=== PATIENT | female | born 1950 | race Caucasian/White ===

== ENCOUNTER 2023-09-02 11:12 | Emergency (ER) | payer MEDICARE, OTHER ==
[~2023-09-02] VITALS: Ht 165.1 cm; Wt 55.0 kg
[2023-09-02 12:52] LABS: INR 0.9 INR; PROTHROMBIN TIME 10.2 SECONDS (9.0-12.0)
[2023-09-02 12:53] LABS: BASOPHILS % (AUTO) 0.4 % (0-1); EOSINOPHILS # (AUTO) 0.3 X10'3 (0-0.9); EOSINOPHILS % (AUTO) 2.8 % (0-6); HEMATOCRIT 36.9 % (35.0-45.0); HEMOGLOBIN 12.3 g/dl (12.0-16.0); LYMPHOCYTES # (AUTO) 1.1 X10'3 (1.1-4.8); MEAN CORPUSCULAR HEMOGLOBIN 30.5 PG (27.0-31.0); MEAN CORPUSCULAR HGB CONC 33.4 g/dL (33.0-36.5); MEAN CORPUSCULAR VOLUME 91.4 FL (78-98); MEAN PLATELET VOLUME 9.2 FL (7.4-10.4); MONOCYTES # (AUTO) 0.6 X10'3 (0-0.9); MONOCYTES % (AUTO) 5.2 % (2-12); NEUTROPHILS # (AUTO) 8.9 X10'3 (1.8-7.7); NEUTROPHILS % (AUTO) 81.6 % (42-75); PLATELET COUNT 301 X10'3 (140-440); RED BLOOD COUNT 4.03 X10'6 (4.20-5.60); RED CELL DISTRIBUTION WIDTH 13.1 % (11.5-14.5); WHITE BLOOD COUNT 10.9 X10'3 (4.5-11.0)
[2023-09-02 12:57] LABS: GLUCOSE 110 MG/DL (70-104)
[2023-09-02 12:58] LABS: ALANINE AMINOTRANSFERASE 22 U/L (12-78); ALBUMIN 2.9 G/DL (3.4-5.0); ALBUMIN/GLOBULIN RATIO 0.8 (1.1-1.5); ALKALINE PHOSPHATASE 93 IU/L (46-116); ANION GAP 9 (8-16); ASPARTATE AMINO TRANSFERASE 18 U/L (10-37); BILIRUBIN,TOTAL 0.3 MG/DL (0.1-1.0); BLOOD UREA NITROGEN 26 MG/DL (7-18); CALCIUM 8.6 MG/DL (8.5-10.1); CHLORIDE 108 MMOL/L (99-107); CREATININE 1.04 MG/DL (0.40-0.90); LIPASE 38 U/L (16-77); POTASSIUM 5.2 MMOL/L (3.5-5.1); SODIUM 143 MMOL/L (135-145); TOTAL CARBON DIOXIDE 26.4 MMOL/L (24-32); TOTAL PROTEIN 6.6 G/DL (6.4-8.2); eCRCL 41 ML/MIN; eGFR 52 ML/MIN
[2023-09-02] MEDS ORDERED: iohexol 300mg/ml 100ml inj. ONE (13:01)
[2023-09-02] MEDS: ondansetron/PF 4mg/2ml inj IV ONE ×2 (13:55→15:28)
[2023-09-02] MEDS: morphine 4 MG/ML inj SYRINge IV ONE ×2 (13:55→14:46)
[2023-09-02] MEDS: MESSAGE TO NURSING IV SCH (15:12)
[2023-09-02] MEDS: HYDROmorphone 1 mg/ml syringe IV STA ×2 (15:15→18:21)
[2023-09-02] MEDS: ondansetron/PF 4mg/2ml inj IV STA (18:13)
[2023-09-02 19:22] VITALS: TEMP 98.2
[2023-09-02] MEDS: normal saline 1000ML IV soln IVB ONE (22:52)
[2023-09-02] MEDS: metroNIDAZOLE-Flagyl 500mg/NS 100 ML IV STA (22:52)
[2023-09-02] MEDS: levoFLOXACIN-Levaquin 500mg/D5 100 ML IV ONE (23:06)
[2023-09-02 23:31] VITALS: BP 162/71; PULSE 84; O2SAT 100
[2023-09-02 23:49] VITALS: RESP 14
[2023-09-02] MEDS: HYDROmorphone 1 mg/ml syringe IV ONE (23:49)
[2023-09-02] MEDS: dextrose 5%-normal saline 1,000 ML IV SCH (23:49)
[2023-09-03] MEDS: ondansetron/PF 4mg/2ml inj IV ONE (00:21)
[2023-09-03] MEDS: insulin regular, human 10 units/0.1 ml syringe SQ ONE (00:23)
[2023-09-03] MEDS: LORazepam 2 mg/ml vial IV ONE (01:18)
[2023-09-03 01:34] LABS: BILIRUBIN,URINE NEGATIVE (Neg); CLARITY,URINE CLEAR (Clear); COLOR,URINE YELLOW (Yellow); GLUCOSE, URINE NEGATIVE (Neg); KETONES,URINE TRACE mg/dl (Neg); LEUKOCYTE ESTERASE ,URINE NEGATIVE (Neg); NITRITES, URINE NEGATIVE (Neg); OCCULT BLOOD,URINE NEGATIVE (Neg); PH,URINE 5.5 (4.8-8.0); PROTEIN,URINE NEGATIVE (Neg); UROBILINOGEN,URINE 0.2 E.U/dL (0.2-1.0)
[2023-09-03 01:35] LABS: UA COLLECTION TYPE FOLEY CATH
[2023-09-03] MEDS ORDERED: doxycycline inj 100 MG in normal saline 100ml IV soln 100 ML IV SCH (08:00)
== END 2023-09-03 01:22 ==
LOC: ER 11:12
DX: K62.3 Rectal prolapse (principal); Z20.822 Contact with and (suspected) exposure to COVID-19; N81.10 Cystocele, unspecified; E11.9 Type 2 diabetes mellitus without complications; Z90.710 Acquired absence of both cervix and uterus
CPT/HCPCS: 36415; 71045; 74177; 80053; 81003; 82948; 83690; 83735; 85025; 85610; 87811; 93005; 96365; 96368; 96375; 96376; 99285; J1170; J1815; J1956; J2060; J2270; J2405; J3490; J7030; J7042; Q9967; A4314; A4615; A6449